=== PATIENT | male | born 1995 | race Caucasian/White ===

== ENCOUNTER 2021-08-09 10:23 | Emergency (ER) | payer BC, SELFPAY ==
--- NOTE | ~2021-08-09 | XR_ITS ---
EXAMINATION: XR chest 1V portable DATE: 08/09/2021 11:53 INDICATION: Cough with mucoid sputum TECHNIQUE: frontal view of the chest was obtained. COMPARISON: Chest radiograph dated 04/25/2019 FINDINGS: The lungs remain clear with no focal airspace opacities, pulmonary edema, pleural effusion or pneumot horax. The cardiomediastinal silhouette is normal. Visualized bones and soft tissues are unremarkable . IMPRESSION: 1. No acute cardiopulmonary disease. Reviewed, dictated and finalized at location B.
--- NOTE | ~2021-08-09 | CT_ITS ---
EXAMINATION: CT brain wo con DATE: 08/09/2021 11:53 INDICATION: Chronic headache. Dizziness. TECHNIQUE: Computed tomography (CT) of the head was performed without intravenous contrast. The mA wa s adjusted according to patient size. Iterative reconstruction technique was employed. Exam dose: 60 5.33 mGy-cm total exam DLP. COMPARISON: None FINDINGS: No intracranial mass lesion or hemorrhage or cerebrovascular accident. No midline shift or mass effect. Normal bowen-white matter differentiation. Normal ventricular size. No subdural or epidural hematoma. There is patchy soft tissue thickening of the ethmoid air cells, mild mucoperiosteal thickening of th e left frontal sinus, minimal mucoperiosteal thickening of the left sphenoid sinus. The mastoid air cells are normally developed and aerated. No fracture or bone destruction of the cranial vault. IMPRESSION: No intracranial abnormality Reviewed, dictated and finalized at Location A. Reviewed, dictated and finalized at location A. IMPRESSION: No intracranial abnormality
[2021-08-09 10:30] VITALS: BP 144/90; PULSE 78; RESP 16; TEMP 36.2; O2SAT 99
[2021-08-09 10:39] LABS: Glucose Point of Care 96 mg/dl (65-105)
--- NOTE | 2021-08-09 10:39 | ED.GENADULT ---
HPI - General Adult General Chief complaint: Upper Respiratory Infection Stated complaint: HEADACHE SHAKEY Time Seen by Provider: 08/09/21 10:39 Source: patient History of Present Illness HPI narrative: 26 ex-smoker illness with the ER with -- 7 month history of intermittent shaky spells which resolved spontaneously. -- Recurrent headache. headache has been intermittent. Comes on acutely. Located frontally. No fever or focal neuro deficits -- right-sided chest pain made worse by coughing and deep breathing. He has had episodes of hemoptysis. -- cough productive mucoid sputum No fever. Onset (ago): month(s) ( Intermittently for the last 7 months) Location: head and chest Severity: moderate Pain Consistency: intermittent Relieving factors: none Exacerbating factors: none Associated symptoms: chest pain, cough, headaches and weakness Treatments prior to arrival: none Related Data Home Medications Medication Instructions Recorded Confirmed No Home Medications 08/09/21 08/09/21 Allergies Allergy/AdvReac Type Severity Reaction Status Date / Time No Known Allergies Allergy Verified 08/09/21 10:38 Review of Systems Review of Systems: All systems reviewed & are unremarkable except as noted in HPI and below Constitutional: Constitutional: Reports as per HPI, Reports no additional constitutional complaints and Reports weakness Eyes: Eyes: Reports as per HPI and Reports no additional eye complaints ENT: Reports system reviewed and no additional complaints, except as documented, Reports as per HPI and Reports sore throat Cardiovascular: Cardiovascular: Reports as per HPI, Reports no additional cardiovascular complaints and Reports chest pain Respiratory: Respiratory: Reports as per HPI, Reports no additional respiratory complaints, Reports chest congestion and Reports cough Comments: cough with mucoid sputum and occasionally him a Gastrointestinal: Gastrointestinal: Reports as per HPI and Reports no additional gastrointestinal complaints Genitourinary: Genitourinary: Reports no additional male genitourinary complaints Musculoskeletal: Musculoskeletal: Reports no additional musculoskeletal complaints and Reports as per HPI Integumentary/Breasts: Skin/Breast: Reports system reviewed and no additional complaints, except as docu and Reports as per HPI Neurologic: Reports system reviewed and no additional complaints, except as documented and Reports as per HPI Psychiatric: Psychiatric: Reports no additional psychiatric complaints and Reports as per HPI Endocrine: Endocrine: Reports no additional endocrine complaints and Reports as per HPI Hematologic/Lymphatic: Hematologic/Lymphatic: Reports no additional hematologic/lymphatic complaints and Reports as per HPI Allergic/Immunologic: Allergic/Immunologic: Reports no additional allergic/immunologic complaints and Reports as per HPI [facility] Past Medical History Medical History No significant medical problems Surgical History Surgical History No significant past surgical history Family History Family History Mother Hypertension Heart disease Social History Social History Additional smoking assessment comments: does not smoke Alcohol intake: current Alcohol use details: socially occasionally Substance use: never Gender identity (if verbalized by the patient): Male Exam Const: General: healthy appearing and no acute distress Orientation/consciousness: patient oriented x3 HENMT: Head: normal to inspection Eyes: Conjunctivae: conjunctivae normal Pupils: Equal, round and reactive pupils present EOM: EOMs intact bilaterally Neck: Neck: normal visual inspection and no lymphadenopathy Chest: Chest palpation & inspe
--- NOTE | 2021-08-09 10:54 | ECG_ITS ---
Measurements Intervals [place] Rate: 76 P: 59 W[place]: 208 QRS: 3 QRSD: 100 T: 16 QT: 368 QTc: 416 Interpretive Statements SINUS RHYTHM EARLY REPOLARIZATION NOTED IN LEADS 1 AND AVL, AND SOMEWHAT IN THE ANTERIOR LEADS NO PREVIOUS ECG AVAILABLE FOR COMPARISON Electronically Signed On 08-09-2021 20:07:43 CDT by Marisol Lund M.D.
[2021-08-09 11:12] LABS: Basophils Absolute Auto 0.03 K/mm3 (0.00-0.10); Basophils Percent Auto 0.5 % (0.0-1.0); Eosinophils Percent Auto 1.7 % (1.0-6.0); Hemoglobin 13.7 g/dL (14.0-18.0); Immature Granulocyte Absolute 0.02 K/mm3 (0.00-0.00); Immature Granulocyte Percent A 0.3 % (0.0-0.0); Lymphocytes Absolute Auto 2.11 K/mm3 (1.10-4.50); Lymphocytes Percent Auto 34.9 % (18.0-42.0); Mean Corpuscular HGB Conc 33.4 g/dL (32.0-36.0); Mean Corpuscular Hemoglobin 29.5 pg (27.0-31.0); Mean Corpuscular Volume 88.4 fL (78.0-102.0); Monocytes Absolute Auto 0.55 K/mm3 (0.10-0.90); Monocytes Percent Auto 9.1 % (2.0-11.0); Neutrophils Absolute Auto 3.2 K/mm3 (1.7-7.2); Neutrophils Percent Auto 53.5 % (50.0-70.0); Platelet Count Result 261 K/mm3 (150-420); Red Blood Count 4.64 M/mm3 (4.70-6.10); White Blood Count 6.1 K/mm3 (4.8-10.8)
[2021-08-09 11:27] LABS: D Dimer 0.38 mg/L (0.19-0.50); Prothrombin Time 10.6 Seconds (9.50-12.10)
[2021-08-09 11:41] LABS: Alanine Aminotransferase 117 U/L (16-63); Albumin Level 3.6 g/dL (3.4-5.0); Alkaline Phosphatase 62 U/L (46-116); Anion Gap 8 mmol/L (8-16); Aspartate Amino Transferase 31 U/L (15-37); Bilirubin,Total 0.3 mg/dL (0.00-1.00); Blood Urea Nitrogen 15 mg/dL (7-18); Calcium 8.7 mg/dL (8.5-10.1); Carbon Dioxide 26 mmol/L (21-32); Chloride 105 mmol/L (98-108); Estimated CRCL calculation 148 ml/min; Estimated Glomerular Filt Rate > 60; Glucose 102 mg/dL (70-99); Lipase 121 U/L (73-393); NT Pro B Type Natriuretic Pept < 5 pg/mL (0-125); Osmolality Calculated 288 mOsm/kg (285-295); Potassium 3.9 mmol/L (3.5-5.1); Sodium 139 mmol/L (136-145); Total Protein 6.8 g/dL (6.4-8.2); Troponin I 5.9 ng/L (0.00-60.4)
[2021-08-09 11:45] VITALS: BP 148/88; PULSE 72; RESP 18; TEMP 36.7; O2SAT 98
[2021-08-09 12:40] VITALS: BP 139/87; PULSE 94; RESP 16; TEMP 36.5; O2SAT 97
== END 2021-08-09 12:42 | disposition home or self-care (01) ==
PROVIDERS: Emergency Provider Internal Medicine Critical Care Medicine
DX: R51.9 Headache, unspecified (principal); F41.9 Anxiety disorder, unspecified; J40 Bronchitis, not specified as acute or chronic
CPT/HCPCS: 36415; 70450; 71045; 80053; 82948; 83690; 83880; 84443; 84484; 85025; 85380; 85610; 93005; 99284

== ENCOUNTER 2021-09-06 09:32 | Outpatient (CLI) | payer BC, SELFPAY ==
--- NOTE | 2021-09-06 11:50 | WPDPFTINT ---
PFT Procedure Performed PFT Procedure Performed Spirometry with Pre/Post Bronchodilator Plethysmography (Lung Vol) Diffusing Cap (DLCO) Flow Vol Loop PFT Interpretation DOS: 09/06/2021 REQUESTING: Dr. Ab Major REASON FOR TESTING: Shortness of breath PULMONARY FUNCTION TESTS Results are reliable and reproducible. Spirometry: Pre bronchodilator FEV1 is 4.43 L, 94% predicted, normal. Pre bronchodilator FVC is 5.91 L, 102%, normal. The FEV1/FVC ratio is 75%, within the lower limits of normal. There is no airflow obstruction. There is no response to bronchodilator administration. Lung volumes: Total lung capacity is 87% predicted, 6.83 L, normal. Residual volume is 46% predicted, normal. RV/TLC is 13% which is 52% of predicted. There is no airtrapping. Airway resistance is normal. ERV is 1.22 L. Diffusion: DLCO is 72% predicted, 28 mL/mmHg/Min. This is mildly reduced. DLCO/VA is 96%, normal. Flow volume loop: There is marked flattening of the inspiratory limb and moderate flattening of the inspiratory limb, and both of these abnormalities are reproducible. This indicates a fixed upper airway obstruction which could be intrathoracic or extrathoracic such a an airway stricture. IMPRESSION: This study shows normal spirometry and normal lung volumes with a mild diffusion abnormality. The flow volume loop is abnormal with a pattern consistent with a fixed upper airway obstruction which could be either intrathoracic or extrathoracic. This pattern can be seen om conditions such as tracheal stenosis, goiter, bulky mediastinal lymphadenopathy or extra luminal tracheal obstruction. This abnormality can be investigated with a chest CT without contrast. Concetta Marin MD
== END 2021-09-06 09:33 | disposition home or self-care (01) ==
LOC: CHSCARD 09:35
PROVIDERS: PCP Family Medicine; Visit Provider Family Medicine
DX: R06.02 Shortness of breath (principal)
CPT/HCPCS: 94060; 94726; 94729

== ENCOUNTER 2021-09-06 10:14 | Outpatient (RCR) | payer BC, SELFPAY ==
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
--- NOTE | 2021-11-29 08:34 | PCPTNOTE ---
Mr. Cee attended a total of 2 treatment sessions from 09/06/21 to 09/19/21. He failed to return to the clinic and will be discharged from our care. Refer to last daily note for pt. discharge status.
== END 2021-09-19 14:19 | disposition home or self-care (01) ==
LOC: CHSPT 10:14
PROVIDERS: PCP Family Medicine; Visit Provider Family Medicine
DX: M54.9 Dorsalgia, unspecified (principal)
CPT/HCPCS: 97110; 97161

== ENCOUNTER 2021-09-27 15:25 | Outpatient (CLI) | payer BC, SELFPAY ==
--- NOTE | ~2021-09-27 | XR_ITS ---
EXAMINATION: XR chest 2V Exam Date/Time: 09/27/2021 15:35 CDT HISTORY: SOB with cough x 3 days Comparison: 08/09/2021. RESULT: Lines, tubes, and devices: None. Lungs and pleura: Clear. Cardiomediastinal silhouette: Stable cardiomediastinal silhouette. Other: No acute osseous or upper abdominal finding. IMPRESSION: No acute cardiopulmonary process. Reviewed, dictated and finalized at location K.
== END 2021-09-27 15:26 | disposition home or self-care (01) ==
LOC: CHSIMG 15:27
PROVIDERS: PCP Family Medicine; Visit Provider Family Medicine
DX: R06.02 Shortness of breath (principal)
CPT/HCPCS: 71046

== ENCOUNTER 2021-10-06 16:30 | Outpatient (CLI) | payer BC, SELFPAY ==
--- NOTE | ~2021-10-06 | CT_ITS ---
EXAMINATION: CT diagnostic chest wo con DATE: 10/06/2021 16:58 INDICATION: Shortness of breath TECHNIQUE: Computed tomography (CT) of the chest was performed without intravenous contrast. The dose -length product (DLP) was 798.94 mGy-cm. Automated exposure control and iterative reconstruction tech nique were employed. COMPARISON: None FINDINGS: The lungs are free of acute opacities. No pleural effusion or pneumothorax. No pathological ly enlarged thoracic lymph nodes are identified. The heart size is normal. Triangular soft tissue ant erior mediastinum likely reflects residual thymus. IMPRESSION: 1. No CT correlate for the patient's symptoms. Reviewed, dictated and finalized at location F.
== END 2021-10-06 16:31 | disposition home or self-care (01) ==
LOC: CHSIMG 16:31
PROVIDERS: PCP Family Medicine; Visit Provider Family Medicine
DX: R06.02 Shortness of breath (principal); R94.2 Abnormal results of pulmonary function studies
CPT/HCPCS: 71250

== ENCOUNTER 2022-02-23 17:49 | Emergency (ER) | payer OTHER, SELFPAY ==
[2022-02-23 17:59] VITALS: BP 154/95; PULSE 103; RESP 20; TEMP 36.3; O2SAT 97
[2022-02-23] MEDS: IPRATROPIUM 0.5 MG/ALBUTEROL SULFATE 2.5 MG AMPUL.NEB 3 ML INHALATION (18:38)
[2022-02-23 18:48] LABS: Strep Group A RT-PCR Negative (Negative)
[2022-02-23] MEDS: ACETAMINOPHEN 325 MG TABLET 650 MG PO (18:48)
[2022-02-23] MEDS: guaiFENesin 12 HR 600 MG TABCR PO (18:48)
[2022-02-23 18:57] LABS: Influenza A QL RT-PCR Negative (Negative); Influenza B QL RT-PCR Negative (Negative); SARS-CoV-2 RNA PCR Negative (Negative)
[2022-02-23 19:19] VITALS: BP 135/85; PULSE 90; RESP 18; TEMP 36.6; O2SAT 98
--- NOTE | 2022-04-05 16:37 | ED.URI ---
HPI - URI/Sore Throat General Chief Complaint: Upper Respiratory Infection Stated Complaint: shortness of breath, cough, loss of hearing in ri Time Seen by Provider: 02/23/22 17:54 Source: patient and RN notes reviewed Mode of arrival: ambulatory Limitations: no limitations History of Present Illness MD elicited complaint: cough and nasal congestion Pertinent past history: COPD Onset (ago): day(s) (2) Consistency: constant Severity: mild Pain scale (0-10): 1 Able to tolerate fluids by mouth: Yes Exacerbating factors: nothing Relieving factors: OTC cold medicine Associated symptoms: nasal congestion, cough and shortness of breath Treatments prior to arrival: cold medicine Related Data Allergies Allergy/AdvReac Type Severity Reaction Status Date / Time No Known Allergies Allergy Verified 02/23/22 18:07 Review of Systems Review of Systems: All systems reviewed & are unremarkable except as noted in HPI and below Constitutional: Constitutional: Reports no additional constitutional complaints Eyes: Eyes: Reports no additional eye complaints ENT: Reports system reviewed and no additional complaints, except as documented Cardiovascular: Cardiovascular: Reports no additional cardiovascular complaints Respiratory: Respiratory: Reports no additional respiratory complaints Gastrointestinal: Gastrointestinal: Reports no additional gastrointestinal complaints Musculoskeletal: Musculoskeletal: Reports no additional musculoskeletal complaints Integumentary/Breasts: Skin/Breast: Reports system reviewed and no additional complaints, except as docu Neurologic: Reports system reviewed and no additional complaints, except as documented Psychiatric: Psychiatric: Reports no additional psychiatric complaints Endocrine: Endocrine: Reports no additional endocrine complaints Hematologic/Lymphatic: Hematologic/Lymphatic: Reports no additional hematologic/lymphatic complaints Allergic/Immunologic: Allergic/Immunologic: Reports no additional allergic/immunologic complaints [facility] Past Medical History Medical History No significant medical problems Shortness of breath Surgical History Surgical History No significant past surgical history Family History Family History Mother Hypertension Heart disease Social History Social History Smoking status: Former smoker Additional smoking assessment comments: Quit smoking August 2021. 7pk hr history Alcohol intake: current Alcohol use details: socially occasionally Substance use: never Gender identity (if verbalized by the patient): Male Exam Const: General: no acute distress and well nourished Nutritional Appearance: well nourished Orientation/consciousness: patient oriented x3 Limitations: no limitations HENMT: Head: normal to inspection Ears: external ears normal, TM's normal bilaterally and EAC's normal Face/Nose/Sinus: Normal external nose present, Normal nares present, normal facial exam and sinuses nontender Face and sinus: normal facial exam and sinuses nontender Mouth: Yes Normal oral and palatal mucosa present and Yes moist mucous membranes Teeth and gingiva: dentition normal Throat: posterior oropharynx normal Eyes: Conjunctivae: conjunctivae normal Pupils: Equal, round and reactive pupils present EOM: EOMs intact bilaterally Neck: Neck: normal visual inspection, no lymphadenopathy and no meningeal signs Chest: Chest palpation & inspection: normal inspection of the chest Resp: Effort & Inspection: normal respiratory effort Auscultation: rhonchi Cardio: Rate: regular rate Rhythm: regular rhythm GI: GI Palp: Yes Soft to palpation and No Tenderness to palpation present (GI) Auscultation: normal bowel sounds : General: Yes bl
== END 2022-02-23 19:23 | disposition home or self-care (01) ==
PROVIDERS: Emergency Provider Emergency Medicine; PCP Family Medicine
DX: H66.90 Otitis media, unspecified, unspecified ear (principal); J40 Bronchitis, not specified as acute or chronic; Z87.891 Personal history of nicotine dependence; Z20.822 Contact with and (suspected) exposure to COVID-19
CPT/HCPCS: 87502; 87651; 99283; A9270; U0003; U0005

== ENCOUNTER 2022-09-26 17:53 | Emergency (ER) | payer OTHER, SELFPAY ==
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
--- NOTE | ~2022-09-26 | XR_ITS ---
AP view of the pelvis Clinical history: Pain Findings: No acute fracture or dislocation is seen. Osseous alignment is anatomic. Bilateral hip and SI joint spaces are preserved. Soft tissues are unremarkable. Impression: No significant abnormality is seen. Reviewed, dictated and finalized at location M. Impression: No significant abnormality is seen.
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
== END 2022-09-26 20:50 | disposition home or self-care (01) ==
PROVIDERS: Emergency Provider Internal Medicine Critical Care Medicine
DX: S02.2XXA Fracture of nasal bones, initial encounter for closed fracture (principal); S00.31XA Abrasion of nose, initial encounter; M54.2 Cervicalgia; V49.88XA Car occupant (driver) (passenger) injured in other specified transport accidents, initial encounter
CPT/HCPCS: 70450; 70486; 71045; 72125; 72170; 96372; 99284; A9270; J0780; J1170; J2405; L0150

== ENCOUNTER 2022-12-19 19:56 | Outpatient (CLI) | payer OTHER, SELFPAY ==
--- NOTE | 2022-12-31 13:51 | WPDSLEEPSTUD ---
Sleep Study Date of Study: 12/19/22 Ordering Provider: Ab Major DO Interpreting Physician: Kia Evans DO Sleep Study Type: Polysomnogram Height: 1.85 m Weight: 121.563 kg Body Mass Index: 35.3 Neck Circumference (inches): 17.5 [place]: 2 Reason for Sleep Study Required by . Previously diagnosed with BELL in the past. Sleep History The patient denies awakening from sleep short of breath. He denies awakening at night with heartburn, belching or cough. He occasionally snores but it is never loud enough that others complain. He denies having trouble sleeping when he has a cold. He denies waking up gasping for air throughout the night. He denies having breathing problems at night observed by himself or others. He denies sweating excessively at night. He denies having heart palpitations or irregular heartbeats during the night. He denies falling asleep during the day and while driving. He denies sleep paralysis, cataplexy and hypnagogic / hypnopompic hallucinations. He denies having trouble at school or work due to sleepiness. He denies feeling afraid of going to sleep. He denies having nightmares. He occasionally remembers his dreams. He denies having thoughts racing through his mind. He denies feeling sad, depressed or anxious. He denies having muscular tension. He denies noticing parts of his body jerk. He denies kicking during the night. He denies having crawling and aching feelings in his legs and denies having leg pain during the night. He denies grinding his teeth during sleep and denies awakening with morning jaw pain. He denies being bothered by pain during the day and denies being awakened by pain during the night. He denies waking up feeling stiff in the morning. He denies waking up with sore or achy muscles. He denies waking up with pain in the neck, spine or other joints. He goes to bed between 10-11 p.m. on the weekdays and between 1-3 a.m. on the weekends. It takes him less than 2 minutes to fall asleep. He typically does not wake up throughout the night. He wakes up between 8:29 a.m. on weekdays and between 9-10 a.m. on the weekends. He typically gets 6-8 hours of sleep per night. He will stay in bed for less than 5 minutes. He currently lives with his and daughter. He denies consuming any caffeinated beverages within 2 hours of bedtime. He will engage in physical exercise before bedtime. He will watch television before falling asleep. He denies taking naps in the afternoon or the evening. He will consume 1 monster energy drink occasionally. He denies any additional caffeinated beverages. He quit smoking cigarettes. He denies alcohol and recreational drug use. [facility] Past Medical History Medical History No significant medical problems Shortness of breath Surgical History Surgical History No significant past surgical history Family History Family History Mother Hypertension Heart disease Social History Social History Smoking status: Former smoker Additional smoking assessment comments: Quit smoking August 2021. 7pk hr history Alcohol intake: current Alcohol use details: socially occasionally Substance use: never Gender identity (if verbalized by the patient): Male Medications Home Medications Medication Instructions Recorded Confirmed Type No Home Medications 09/20/22 09/20/22 History Sleep Procedure This test was performed using the [employer] multiple channel system including EOG, EEG, submental EMG, EKG, nasal and oral airflow using thermistors and nasal pressure sensors, chest and abdominal belts for body position data, and pulse oximetry. Video monitoring was also performed. The study was scored
[2022-12-31 13:53] VITALS: BMI 35.3
== END 2022-12-20 05:37 | disposition home or self-care (01) ==
PROVIDERS: PCP Family Medicine; Visit Provider Family Medicine
DX: R06.83 Snoring (principal); G47.33 Obstructive sleep apnea (adult) (pediatric)
CPT/HCPCS: 95810

== ENCOUNTER 2023-11-22 08:53 | Outpatient (CLI) | payer OTHER, SELFPAY ==
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
== END 2023-11-22 08:54 | disposition home or self-care (01) ==
LOC: CHSIMG 08:54
PROVIDERS: PCP Family Medicine; Visit Provider Family Medicine
DX: M25.531 Pain in right wrist (principal)
CPT/HCPCS: 73110

== ENCOUNTER 2024-04-17 15:36 | Outpatient (CLI) | payer OTHER, SELFPAY ==
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
== END 2024-04-17 15:37 | disposition home or self-care (01) ==
PROVIDERS: PCP Nurse Practitioner Family; Visit Provider Nurse Practitioner Family
DX: M25.559 Pain in unspecified hip (principal); M79.89 Other specified soft tissue disorders
CPT/HCPCS: 73521; 73552; 73560